=== PATIENT | female | born 1950 | race Caucasian/White ===

== ENCOUNTER → 2020-12-25 | Outpatient (CLI) | payer MEDICARE ==
--- NOTE | 2020-12-25 19:56 | REP ---
INDICATION: PVD, VVI COMPARISON: None. TECHNIQUE: Dennis scale and color Doppler evaluation using linear high frequency transducer including reflux evaluation. FINDINGS: Ultrasound examination of the right lower extremity deep venous structures from the common femoral vein through the calf/ankle to include the peroneal, and tibial veins demonstrates normal compressibility flow and wave patterns in response to respiration and augmentation. There is no evidence for deep venous thrombosis. Small focus of presumed chronic nonocclusive thrombus is identified in the lesser saphenous vein. Ultrasound examination of the left lower extremity deep venous structures from the common femoral vein through the calf/ankle to include the peroneal, and tibial veins demonstrates normal compressibility flow and wave patterns in response to respiration and augmentation. There is no evidence for deep venous thrombosis. Occlusive thrombus is identified in the lesser saphenous vein and distal greater saphenous vein which may be chronic. Right lower extremity demonstrates reflux through the visualized common femoral vein as well as through the greater saphenous vein. Specifically, proximal greater saphenous vein measures 4.1 mm diameter with reflux duration 9.4 seconds, mid greater saphenous vein measures 4.1 mm diameter with reflux duration 10.4 seconds, and distal greater saphenous vein measures 4.6 mm diameter with reflux duration 9.0 seconds. Left lower extremity demonstrates reflux through the visualized common femoral vein. A perforating vein is identified which demonstrates reflux into the proximal left greater saphenous vein, and technologist also makes mention and demonstrates a collateral vein from the proximal calf extending distally along the lateral thigh crossing at the popliteal fossa to the medial calf. IMPRESSION: 1. Elements of presumed chronic thrombus in the lesser saphenous veins and left distal greater saphenous vein. 2. Elements of reflux primarily right lower extremity along with nonspecific findings as described above. <Electronically signed by Jamie Cisse > 12/25/201951
--- NOTE | 2020-12-25 19:59 | REP ---
INDICATION: PVD, VVI COMPARISON: None. TECHNIQUE: Real time dennis scale and color Doppler evaluation of the bilateral lower extremity arterial vasculature using linear high frequency transducer. FINDINGS: Dennis scale and color images demonstrate mild amounts of atheromatous plaquing without focal stenosis or occlusion identified. Doppler interrogation demonstrates normal triphasic and biphasic arterial wave forms and velocities bilaterally. Right OSIEL: 1.4 Left OSIEL: 1.2 Peak systolic velocities (cm/sec) Common femoral artery: Right 129; Left 177 Profunda femoris: Right 171; Left 159 SFA (proximal): Right 130 seconds; Left 149 SFA (mid): Right 142; Left 132 SFA (distal): Right 120; Left 122 Popliteal artery: Right 135; Left 99 SOWMYA (prox.): Right 107; Left 77 Tibioperoneal trunk: Right 71; Left 69 TERRITORY REPRESENTATIVE (prox.): Right 74; Left 66 TERRITORY REPRESENTATIVE (distal): Right 62; Left 53 SOWMYA (distal): Right 65; Left 65 IMPRESSION: Mild atheromatous changes with without stenosis or occlusion. Ankle-brachial indices are elevated, but likely related to calcified vessels as described by technologist. <Electronically signed by Jamie Cisse > 12/25/201954
== END ==
LOC: M RAD 12:33
PROVIDERS: ATTEND Surgery Vascular Surgery
DX: I82.812 Embolism and thrombosis of superficial veins of left lower extremity (principal); I73.9 Peripheral vascular disease, unspecified; I87.2 Venous insufficiency (chronic) (peripheral)